=== PATIENT | male | born 1965 | race Caucasian/White ===

== ENCOUNTER 2019-07-05 10:36 | Inpatient (IN) | payer OTHER ==
[2019-07-05 11:17] VITALS: BMI 22.1
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
[2019-07-05] MEDS ORDERED: ACETAMINOPHEN 325 MG TABLET (FP) PO PRN ×2 (19:12)
[2019-07-05] MEDS ORDERED: MAGNESIUM CITRATE 300 ML BOTTLE PO PRN (19:12)
[2019-07-05] MEDS ORDERED: hydrOXYzine PAMOATE 25 MG CAPSULE (FP) PO PRN (19:12)
[2019-07-05] MEDS ORDERED: IBUPROFEN 400 MG TABLET (FP) PO PRN (19:12)
[2019-07-05] MEDS ORDERED: METHOCARBAMOL 500 MG TABLET PO PRN (19:12)
[2019-07-05] MEDS ORDERED: MENTHOL/PHENOL 1 EACH UD MM PRN (19:12)
[2019-07-05] MEDS ORDERED: BISMUTH SUBSALICYLATE 524 MG/30 ML UD PO PRN (19:12)
[2019-07-05] MEDS ORDERED: MELATONIN 5 MG TABLETS PO PRN (19:12)
[2019-07-05] MEDS ORDERED: MAG HYDROX/AL HYDROX/SIMETH 30 ML UNIT-DOSE CUP PO PRN (19:12)
[2019-07-05] MEDS ORDERED: MAGNESIUM HYDROX 2400MG/30ML ORAL SUSPENSION 30 ML CUP PO PRN (19:12)
[2019-07-05] MEDS ORDERED: chlordiazePOXIDE HCL 10 MG CAPSULE PO PRN (19:13)
[2019-07-05] MEDS ORDERED: chlordiazePOXIDE HCL 25 MG CAPSULE PO ONE (19:13)
[2019-07-05] MEDS: chlordiazePOXIDE HCL 25 MG CAPSULE PO SCH (20:37)
[2019-07-05] MEDS ORDERED: THIAMINE HCL 100 MG TABLET (FP) PO SCH (22:00)
[2019-07-06 06:21] VITALS: BP 146/93; PULSE 74; TEMP 99.8
[2019-07-06] MEDS: chlordiazePOXIDE HCL 25 MG CAPSULE PO SCH (06:31)
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
[2019-07-06] MEDS ORDERED: PRENATAL VITAMINS W/ FOLIC ACID TABLET (FP) PO SCH (10:00)
[2019-07-07] MEDS ORDERED: chlordiazePOXIDE 5 MG CAPSULE PO SCH (05:00)
[2019-07-08] MEDS ORDERED: chlordiazePOXIDE HCL 10 MG CAPSULE PO PRN
[2019-07-08] MEDS ORDERED: chlordiazePOXIDE HCL 10 MG CAPSULE PO SCH (05:00)
[2019-07-09] MEDS ORDERED: chlordiazePOXIDE HCL 10 MG CAPSULE PO ONE (05:00)
== END 2019-07-06 08:46 | disposition left against medical advice (07) | DRG 770 ==
LOC: YASAS 10:36 → Y3N 19:26
PROVIDERS: ADMIT Allergy & Immunology; ATTEND Allergy & Immunology
PROC: HZ2ZZZZ Detoxification Services for Substance Abuse Treatment (ICD-10-PCS; principal; 2019-07-05)
DX: F10.230 Alcohol dependence with withdrawal, uncomplicated (principal); Z88.8 Allergy status to other drugs, medicaments and biological substances

== ENCOUNTER 2019-07-05 16:41 | Emergency (ER) | payer OTHER ==
[2019-07-05 17:55] VITALS: BP 132/78; PULSE 94; TEMP 97.6; BMI 23.7
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
[2019-07-05] MEDS ORDERED: IBUPROFEN 600 MG TABLET (FP) PO ONE ×2 (18:22→18:30)
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
== END 2019-07-05 18:44 | disposition home or self-care (01) ==
LOC: JER 16:41
DX: M79.641 Pain in right hand (principal); F19.10 Other psychoactive substance abuse, uncomplicated; F17.210 Nicotine dependence, cigarettes, uncomplicated; F43.10 Post-traumatic stress disorder, unspecified; Z88.8 Allergy status to other drugs, medicaments and biological substances
CPT/HCPCS: 73130-TC-RT-FY; 99283-25